=== PATIENT | female | born 1980 | race African-American/Black ===

== ENCOUNTER 2016-09-06 15:41 | Emergency (ER) | payer OTHER ==
[~2016-09-06] VITALS: Ht 167.6 cm; Wt 115.0 kg
[~2016-09-06 15:41] MED LIST: Z.0.NO CURRENT MEDS
[2016-09-06 15:43] VITALS: BP 135/76; PULSE 87; RESP 14; TEMP 98.3; O2SAT 99
[2016-09-06 17:29] VITALS: BP 143/86; PULSE 80; RESP 16; O2SAT 100
--- NOTE | 2016-09-06 18:12 | PD ---
HPI . Swelling of the right lower extremity Chief Complaint: Edema Time Seen by Provider: 17:35 Travel History International Travel<30 days: No Contact w/Intl Traveler<30days: No Traveled to known affect area: No History of Present Illness HPI Patient presents with swelling behind her right knee. She states she noticed it today. She consulted with her primary care provider who instructed her to come to the emergency department to be evaluated for possible DVT. She is not having any chest pain. PFSH Past Medical History Blood Disorders: No Heart Rhythm Problems: No Cancer: No Cardiovascular Problems: Yes (HEART MURMUR) High Cholesterol: No Chest Pain: No Congestive Heart Failure: No Endocrine: No Gastrointestinal Disorders: Yes GERD: No Glaucoma: No Genitourinary: No Hepatitis: Yes (HEP B) Hiatal Hernia: No Hypertension: No Immune Disorder: No Medical other: Yes (IRREGULAR MENSTRUAL CYCLES) Musculoskeletal: No Neurologic: No Psychiatric: No Reproductive: No Respiratory: No Myocardial Infarction: No Ulcer: No Influenza Vaccination: No ?: Not LMP: 09/06/2016 Dilation and Curettage (D&C): Yes Past Surgical History AICD: No Appendectomy: No Arteriovenous Shunt: No Cholecystectomy: No Insulin Pump: No Joint Replacement: No Pacemaker: No Social History Alcohol Use: No Tobacco Use: No Substance Use: No Allergies-Medications (Allergen,Severity, Reaction): Coded Allergies: No Known Allergies (Verified , 09/06/16) Reported Meds & Prescriptions Reported Meds & Active Scripts Active No Active Prescriptions or Reported Medications Review of Systems Except as stated in HPI: all other systems reviewed are Neg General / Constitutional: No: Fever, Chills Cardiovascular: No: Chest Pain or Discomfort Musculoskeletal: Positive: Edema (behind her right knee.) Physical Exam Narrative GENERAL: This is a well-appearing woman who is sitting in the room visiting with her family in no acute distress. SKIN: Warm and dry. HEAD: Atraumatic. Normocephalic. EYES: Pupils equal and round. ENT: No nasal bleeding or discharge. Mucous membranes pink and moist. NECK: Trachea midline. CARDIOVASCULAR: Regular rate and rhythm. Heart sounds are normal. RESPIRATORY: No accessory muscle use. Lungs are clear with full air movement throughout. GASTROINTESTINAL: Abdomen soft, non-tender, nondistended. MUSCULOSKELETAL: No obvious deformities. She has some swelling in the popliteal fossa of the right leg. I am not convinced that the swelling is any different than the popliteal fossa of her left leg. NEUROLOGICAL: Awake and alert. No obvious cranial nerve deficits. Motor grossly within normal limits. Normal speech. PSYCHIATRIC: Appropriate mood and affect; insight and judgment normal. Data Data Last Documented VS Vital Signs Date Time Temp Pulse Resp B/P Pulse Ox O2 Delivery O2 Flow Rate FiO2 09/06/16 19:26 80 16 116/76 100 Room Air 09/06/16 15:43 98.3 Orders Us Leg Venous Doppler (09/06/16 18:08) MDM Medical Decision Making Medical Screen Exam Complete: Yes Emergency Medical Condition: Yes Differential Diagnosis Differential diagnosis of leg pain includes but is not limited to lumbar radiculopathy, arthritis, myalgias, DVT. Narrative Course Patient presents for evaluation of swelling behind her right knee. She reports that she was seen her by her doctor for rule out DVT. Ultrasound is negative for DVT. Diagnosis Primary Impression: Right leg pain Patient Instructions: General Instructions, Leg Pain (ED) Med/Other Pt SpecificInfo: Prescription(s) given Scripts Tramadol (Ultram)50 Mg Tab50 Mg PO Q4H PRN (PAIN) #12 TAB Ref 0 Prov:Sissy Arriaga MD 09/06/16 Prednisone (48) 10 mg tab Dose Pack 10 Mg Dspk10 Mg PO DIRECTED #1 DSPK Ref 0 Prov:Sissy Arriaga MD 09/06/16 Disposition: 01 DISCHARGE HOME Condition: Stable Sissy Arriaga MD Sep 06, 2016 18:12
--- NOTE | 2016-09-06 19:25 | RADRPT ---
EXAM DATE/TIME: 09/06/2016 18:48 [facility] COMPARISON: No previous studies available for comparison. INDICATIONS : Right leg edema. MEDICAL HISTORY : Hepatitis B. Heart murmur. Irregular menstral cycles. SURGICAL HISTORY : D&C. ENCOUNTER: Initial ACUITY: 3 days PAIN SCORE: 0/10 LOCATION: Right leg. TECHNIQUE: Venous ultrasound of the leg was performed from the inguinal ligament to the proximal calf. Real-melissa e, color Doppler and spectral tracing, compression and augmentation techniques were used. FINDINGS: There is normal compressibility of the deep venous system from the inguinal region to the proximal ca lf. No echogenic clot is seen in the lumen of the common femoral, femoral, popliteal, and posterior tibial veins. There is a normal response of the venous system to proximal and distal augmentation an d respiration. CONCLUSION: Normal examination. Neo Bueno MD on September 06, 2016 at 19:23 Board Certified Radiologist. This report was verified electronically.
[2016-09-06 19:26] VITALS: BP 116/76; PULSE 80; RESP 16; O2SAT 100
[2016-09-06] MEDS ORDERED: ULTR50TA5 PO (19:35)
[2016-09-06] MEDS ORDERED: PRED10PA2 PO (19:35)
== END 2016-09-06 20:27 | disposition home or self-care (01) ==
LOC: NEPA 15:41
DX: M79.604 Pain in right leg (principal); R60.9 Edema, unspecified
CPT/HCPCS: 93971